=== PATIENT | male | born 1950 | race Caucasian/White ===

== ENCOUNTER 2024-06-04 23:27 | Observation (INO) | payer MEDICARE ==
[~2024-06-04] VITALS: Ht 180.3 cm; Wt 84.3 kg
[2024-06-05 00:21] LABS: ALBUMIN 4.2 g/dL (3.4-5.0); ALBUMIN/GLOBULIN RATIO 1.17 (1.1-2.4); ANION GAP 10.3 (7-21); BILIRUBIN, TOTAL 1.7 ng/dL (0.2-1.0); BUN/CREATININE RATIO 12.73 (6.0-28.6); CALCIUM 9.6 mg/dL (8.5-10.1); CREATININE, SERUM 1.57 mg/dL (0.70-1.30); MAGNESIUM 2.1 mg/dL (1.8-2.4); POTASSIUM 4.3 mmol/L (3.5-5.1); PROTEIN, TOTAL 7.8 g/dL (6.4-8.2)
[2024-06-05 00:25] LABS: BASOPHILS 0.7 % (0-2); EOSINOPHILS 1.4 % (0-6); HEMATOCRIT 47.8 % (35.0-50.0); HEMOGLOBIN 16.4 g/dL (12.0-18.0); LYMPHOCYTES 18.8 % (24-44); MCHC 34.4 g/dl (30-36); MCV 84.1 fl (81-99); MONOCYTES 11.4 % (0-12); NEUTROPHILS 67.7 % (39-80); PLATELET COUNT 237 K/uL (140-440); RBC 5.68 M/ul (4.3-5.7); RDW 13.7 (10.5-15.0)
[2024-06-05] MEDS ORDERED: MORPHINE SULFATE 4 MG/ML VIAL IV PRN (01:45)
[2024-06-05] MEDS ORDERED: ondansetron HCL 4 MG/2 ML VIAL IV PRN ×2 (01:45→11:15)
[2024-06-05] MEDS ORDERED: LACTATED RINGER'S 1,000 ML IV SCH (01:45)
[2024-06-05] MEDS ORDERED: GLUCAGON,HUMAN RECOMBINANT 1 MG/ML VIAL IV ONE (01:45)
--- NOTE | 2024-06-05 02:09 | NUR ---
RECEIVED VERBAL REPROT FROM ED RN TALIA IN THE ED. pt A/OX4, TAKEN VIA WC FROM ED ROOM TO MS ROOM #113, AMBULATED INDEPENDENTLY TO MS BED, STANDING WEIGHT OBTAINED. POC DISCUSSED, pt NPO. IV SITE WNL, FLUIDS INFUSING WNL. CALL LIGHT IN REACH. BEDSIDE REPORT GIVEN TO PRIMARY RN PEDRITO MAJOR TO TAKE OVER pt CARE AT THIS TIME.
[2024-06-05 02:10] VITALS: BP 133/84
--- NOTE | 2024-06-05 02:15 | NUR ---
ASSESSMENT COMPLETE. pt DENIES PAIN. HOB ELEVATED. pt EDUCATED ON NPO STATUS, ORIENTATION TO ROOM AND CALL LIGHT PROVIDED. IV SITE FLUSHED WNL, IVF INFUSING ORDERED. TENZIN BETTS IN ROOM FOR ADMISSION HISTORY.
--- NOTE | 2024-06-05 04:15 | NUR ---
PT RESTING IN BED, EYES CLOSED. NO DISTRESS NOTED.
--- NOTE | 2024-06-05 06:08 | NUR ---
VSS, IV PUMP CLEARED. DR STACK NOW IN ROOM AND DISCUSSING POC WITH pt. CALL LIGHT IN REACH.
[2024-06-05 06:09] VITALS: BP 125/81
--- NOTE | 2024-06-05 06:47 | NUR ---
pt adamant on trying a sip of water to "see if it'll go down". dr kiran at rn station and made aware, okay'd pt request. pt took a couple small sips of water, stayed down for approx 1 minute then pt spit it back up into emesis bag, dr kiran made aware. no new orders received. rt too completed ekg, result handed to and reviewed by dr kiran, no new orders received. beau acevedo aware.
--- NOTE | 2024-06-05 07:15 | NUR ---
REPORT RECIEVED FROM TENZIN MAJOR. PT SITTING UP IN BED AND RESPONDS WHEN ADDRESSED. PT DENIES ANY OTHER NEEDS AT THIS TIME. CALL LIGHT IN REACH.
--- NOTE | 2024-06-05 07:27 | CONS ---
[facility] [address], [place] [address] Signed DATE OF CONSULTATION: 06/05/2024 CHIEF COMPLAINT: Esophageal foreign body. 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 He is over here in [facility], hunting [place] with his bow and arrow. He was in camp, eating some jerky and some pork and he thinks it stuck in his esophagus. He came to our local emergency room for evaluation. He apparently could not tolerate drinking any water. He slept all night long, has not spit up once. I woke him up this morning in the room with our nurse present and he was a little groggy, but he is not 100% sure if it is still stuck or not. He was able to talk to me and swallow his saliva throughout the conversation. I have been asked to admit him as a general surgeon on-call. PAST MEDICAL HISTORY: Esophageal foreign body 10-15 years ago. PAST SURGICAL HISTORY: A disk removed from the lower portion of his neck without metal and upper endoscopy 10-15 years ago for foreign body removal. 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 He does not smoke or drink, but he likes to chew snuff. He has no primary care provider as many of him have retired. He lives in [facility]. His is Carlos at ([phone]. FAMILY HISTORY: None. REVIEW OF SYSTEMS: He had 10 systems reviewed. He told me about his neck. ALLERGIES: None. MEDICATIONS: None. PHYSICAL EXAMINATION: VITAL SIGNS: Blood pressure is 133/84, heart rate 71, respiratory rate 18, temperature Electronically Signed By: MATTHIAS AMOS MD 06/05/24 0727 PATIENT NAME: MIGUEL ANGEL TIPTON CONSULTATION DATE OF : 54 REPORT #: [id number] PHYSICIAN: MATTHIAS AMOS MD PCP: NO PRIMARY CARE PHYSICIAN REPORT IS CONFIDENTIAL AND NOT TO BE RELEASED WITHOUT AUTHORIZATION [facility] [address], [place] [address] Signed is 97.4, and he is 100% on room air. He is 5 feet 11 inches tall, at 82 kg with a body mass index of 25. GENERAL: Miguel Angel is a 73-year-old gentleman, who is lying supine semi-recumbent in his hospital bed. He was found asleep this morning with no increased work of breathing or shortness of breath. He talks fine and control his saliva fine. LUNGS: Clear to auscultation bilaterally. HEART: Regular rate and rhythm without murmurs. ABDOMEN: Soft, nontender. LABORATORY DATA: His white count is 9, hemoglobin 16, and neutrophils 67. His creatinine is 1.57, albumin is 4.2. EKG is pending. IMAGING DATA: CT scan of his chest shows an air-fluid level in his proximal esophagus. No obvious foreign body visualized. ASSESSMENT AND PLAN: Miguel Angel is a 73-year-old gentleman, who apparently has an esophageal foreign body in the form of either jerky or pork. If it is jerky, he may be getting his saliva passed it, and therefore it is only partially obstructed. He has been admitted overnight and has done well. We are going to plan to take him to the endoscopy suite later today with the help of our anesthesia provider. We will look to make sure his esophagus is completely clear. He understands that jerky can be difficult to remove from the esophagus with flexible endoscopy. If that is true, he might need rigid esophagoscopy, which we do not have available at our hospital, that would be over an hour away. He understands risks including, but not limited to gas bloating, crampy abdominal pain, bleeding, perforation requiring surgery, and missed diagnosis. He has expressed understanding and would like to proceed. MD ELIZABETH Gallego/HIGINIOL /[id number] cc: Matthias Amos MD Electronically Signed By: MATTHIAS AMOS MD 06/05/24 0727 PATIENT NAME: MIGUEL ANGEL TIPTON CONSULTATION DATE OF : 54 REPORT #: [id number] PHYSICIAN: MATTHIAS AMOS MD PCP: NO PRIMARY CARE PHYSICIAN REPORT IS CONFIDENTIAL AND NOT TO BE RELEASED WITHOUT AUTHORIZATION [facility] [address] [facility] [place], [place] [address] Signed Copies: MATTHIAS AMOS MD ~ Electronically Signed By: MATTHIAS AMOS MD 06/05/24 0727 PATIENT NAME: MIGUEL ANGEL TIPTON CONSULTATION DATE OF : 54 REPORT #: [id number] PHYSICIAN: MATTHIAS AMOS MD PCP: NO PRIMARY CARE PHYSICIAN REPORT IS CONFIDENTIAL AND NOT TO BE RELEASED WITHOUT AUTHORIZATION
--- NOTE | 2024-06-05 08:00 | NUR ---
IN TO HANG LR WITH STRAIGHT TUBING. PT SITTING UP IN BED AND RESPONDS WHEN ADDRESSED. PT DENIES ANY NAUSEA OR PAIN AT THIS TIME. IV FLUSHES WNL WITH BRISK BLOOD RETURN NOTED. PTs JEANS AND SOCKS REMOVED. HOSPITAL SOCKS PROVIDED. ASSESSMENT COMPLETE. LUNG SOUNDS CLEAR. BOWEL TONES ACTIVE. ABD NON-TENDER WITH PALPATION. RADIAL PULSES PALPABLE, STRONG AND EQUAL. PEDAL PULSES PALPABLE, STRONG AND EQUAL. PT DENIES ANY OTHER NEEDS AT THIS TIME. CALL LIGHT IN REACH.
--- NOTE | 2024-06-05 08:05 | NUR ---
UR CLINICAL REVIEW: CRAIG, MEETS OBS CRITERIA FOR GENERAL OBSERVATION CARE [facility] SUPPLE[facility]BS 06/05/24 @ 0140 ORDER MATCHES STATUS AUTH PENDING. WILL SEND CLINICALS IF REQUESTED PLAN TO DC TO HOME WHEN STABLE. 06/06/24
--- NOTE | 2024-06-05 08:20 | NUR ---
PATIENT SITTING AT SIDE OF BED, RNS AT BEDSIDE. BOARD UPDATED.
--- NOTE | 2024-06-05 09:10 | NUR ---
medications reconciled- patient takes no chronic medications
--- NOTE | 2024-06-05 09:53 | NUR ---
TENZIN GARCIA HERE TO TAKE PT DOWN FOR PROCEDURE.
[2024-06-05] MEDS ORDERED: LIDOCAINE HCL 2% 5 ML SDV ONE (10:15)
[2024-06-05] MEDS ORDERED: GLYCOPYRROLATE 1 MG/5 ML MDV ONE (10:15)
[2024-06-05] MEDS ORDERED: propofoL 200 MG/20 ML VIAL ONE (10:15)
[2024-06-05] MEDS ORDERED: SUCCINYLCHOLINE IN 0.9% NACL 200 MG/10 ML SYRINGE ONE (10:15)
--- NOTE | 2024-06-05 10:31 | NUR ---
Attempted to see pt, he is in surgery.
[2024-06-05] MEDS ORDERED: ePHEDrine sulfate 50 MG/ML AMP ONE (10:38)
--- NOTE | 2024-06-05 11:00 | NUR ---
06/05/24 1100 Ling Eddy 1056-PATIENT ARRIVED TO PACU ON 6L MASK NONAROUSABLE ORAL AIRWAY IN PLACE. RR EVEN. SINUS TACHYCARDIA HR 115. IVF INFUSING. ABDOMEN SOFT. PATIENT LAYING SEMI FOWLERS.
[2024-06-05] MEDS ORDERED: PROCHLORPERAZINE EDISYLATE 10 MG/2 ML VIAL IV PRN (11:15)
[2024-06-05] MEDS ORDERED: DEXTROSE 5% - LACTATED RINGERS 1,000 ML IV SCH (11:15)
[2024-06-05] MEDS ORDERED: ACETAMINOPHEN 500 MG TAB PO PRN (11:15)
[2024-06-05 11:30] VITALS: BP 123/94
--- NOTE | 2024-06-05 11:30 | NUR ---
IN ROOM WITH TENZIN SIMMONS RECIEVEING REOPRT FROM SURGERY NURSE. THIS RN RECIEVES REPORT. CPOX IN PLACE. PT NOTED TO BE DRINKING WATER WITH NO ISSUES. IV FLUIDS STARTED WNL, SEE MAR. PT DENIES ANY OTHER NEEDS AT THIS TIME. CALL LIGHT IN REACH.
--- NOTE | 2024-06-05 11:50 | NUR ---
CALL TO AIDA MOBLEY, TO LET HIM KNOW THAT PATIENT WOULD LIKELY BE READY TO DISCHARGE BY 1400. THEY ARE AWARE THAT PATIENT IS NOT TO [place] FOR 24 HOURS AND TO EAT SOFT FOODS FOR 48HOURS.
[2024-06-05 12:33] VITALS: BP 143/83
--- NOTE | 2024-06-05 12:38 | NUR ---
IN WITH TENZIN TORRES TO OBTAIN VITALS. VITALS COMPLETE. PT SITTING UP IN BED EATING LUNCH. PT PROVIDED FRESH WATER. PT DENIES ANY OTHER NEEDS AT THIS TIME. CALL LIGHT IN REACH.
--- NOTE | 2024-06-05 12:43 | OR ---
[facility] [address] [place], [place] [address] Signed DATE OF OPERATION: 06/05/2024 SURGEON: Matthias Amos MD PREOPERATIVE DIAGNOSIS: Esophageal foreign body (pork versus jerky). POSTOPERATIVE DIAGNOSES: 1. Esophageal foreign body (pork). 2. Hairy tongue. 3. Gastroduodenitis. PROCEDURE: EGD with CLOtest, biopsy of the pyloric bulb, antrum and removal of esophageal foreign body. ESTIMATED BLOOD LOSS: None. INDICATIONS: Miguel Angel is a 73-year-old gentleman, who lives over in [facility] about 6 hours away. He is here with his friends . He was eating some jerky followed by some pork and he felt like it was stuck in his esophagus. He has been able to control his saliva fairly well but is not able to drink anything of any significance. He had come into the emergency room for evaluation. He was admitted last night and did well overnight. I had met Miguel Angel this morning and reviewed with him the above findings. We again allowed him to try to drink a little and it did not work out well at all. He went through this once around 10 to 15 years ago. He currently has no primary care provider for over 10 years. Apparently, his has a primary care provider. I explained him the upper endoscopy. There is risk including, but not limited to gas bloating, crampy abdominal pain, bleeding, perforation requiring surgery, and missed diagnosis. We also reviewed the need for general endotracheal tube anesthesia to protect his airway during removal of the foreign body. He had expressed understanding and wished to proceed. PROCEDURE IN DETAIL: Miguel Angel was taken into the endoscopy suite and placed in the supine position. He was placed under general endotracheal tube anesthesia per our nurse qa test lead. A bite block was utilized. After this, the adult gastroscope was introduced all the way out into the 3rd portion of the duodenum. The duodenum proper was unremarkable. He had moderate inflammatory changes in the pyloric bulb without an ulcer. He also had some Electronically Signed By: MATTHIAS AMOS MD 06/05/24 1243 PATIENT NAME: MIGUEL ANGEL TIPTON OPERATIVE REPORT DATE OF : 54 REPORT #: [id number] PHYSICIAN: MATTHIAS AMOS MD PCP: NO PRIMARY CARE PHYSICIAN REPORT IS CONFIDENTIAL AND NOT TO BE RELEASED WITHOUT AUTHORIZATION [facility] [address] [place], [place] [address] Signed mild to moderate inflammation in the distal half of the stomach. We went ahead and took a biopsy of the pyloric bulb and antrum for pathologic review. An additional biopsy came out of the antrum for CLOtest. The incisura body and fundus of the stomach were unremarkable. We could not appreciate a hiatal hernia. His GE junction is right at about 34 cm. Minimal disruption to the Z-line. There is no Boo's mucosa. No obvious stricture. No gastric or esophageal varices. On our way in, we did see his pork that was moving around in his mid to distal esophagus. We had removed it in two pieces with our basket. After this, the entire esophagus was clear. Upon passing the scope into his mouth and out of his mouth, we can see that he has a hairy tongue. This is as usual a benign condition, but he should follow this up when he gets back home to [facility]. RECOMMENDATIONS: Steven is going to finish out the with his friends and head back to [facility]. He is welcome to call our office for any followup, but he can establish with a primary care provider over in [facility] as well. Matthias Amos MD ALB/MODL /[id number] cc: Matthias Amos MD Copies: MATTHIAS AMOS MD ~ Electronically Signed By: MATTHIAS AMOS MD 06/05/24 1243 PATIENT NAME: MIGUEL ANGEL TIPTON OPERATIVE REPORT DATE OF : 54 REPORT #: [id number] PHYSICIAN: MATTHIAS AMOS MD PCP: NO PRIMARY CARE PHYSICIAN REPORT IS CONFIDENTIAL AND NOT TO BE RELEASED WITHOUT AUTHORIZATION
--- NOTE | 2024-06-05 13:03 | NUR ---
PATIENT UP TO VOID, ATE 80% OF DINNER. PATIENT FRIENDS IN ROOM. PATIENT IS AWAITING DISCHARGE, AMBULATED INDEPENDANTLY TO BATHROOM. PATIENT DENIES PAIN, IS SALINE LOCKED.
[2024-06-05 13:13] VITALS: BP 134/87
--- NOTE | 2024-06-05 13:14 | NUR ---
PATIENT SITTING IN BED, VITALS AND I&OS CHARTED. VISITORS IN ROOM. IV REMOVED. IV IRIS IN WITH D/C PAPERS
--- NOTE | 2024-06-05 13:53 | EKG ---
[facility] [address] [facility] [place], [place] [address] Signed Sinus rhythm with premature atrial complexes Septal infarct , age undetermined Abnormal ECG No previous ECGs available Confirmed by Kenton Betancourt MD ([id number]) on 06/05/2024 1:53:26 PM Electronically Signed By: KENTON BETANCOURT 06/05/24 1353 PATIENT NAME: LAURIE TIPTON BOOKER Electrocardiogram DATE OF : 54 PHYSICIAN: KENTON BETANCOURT REPORT #: [id number] REPORT IS CONFIDENTIAL AND NOT TO BE RELEASED WITHOUT AUTHORIZATION
--- NOTE | 2024-06-18 13:16 | PATH ---
[facility] [address] [place], [place] [address] Signed SPECIMEN(S): A DUODENAL BIOPSY SPECIMEN(S): B ANTRUM BIOPSY SPECIMEN SOURCE: A. DUODENAL BIOPSY B. ANTRUM BIOPSY CLINICAL HISTORY: Esophageal foreign body, gastroduodenitis, esophageal foreign body FINAL PATHOLOGIC DIAGNOSIS: A. Duodenal biopsy: - Benign duodenal mucosa with increased stromal acute and chronic inflammation. - Negative for increased epithelial lymphocytes. B. Antrum, biopsy: - Benign gastric mucosa with slight mucosal chronic inflammation. - Negative for evidence of Helicobacter organisms on routine HE stained sections. JVR:cml MICROSCOPIC EXAMINATION: Histologic sections of all submitted blocks are examined by light microscopy. These findings, together with the gross examination, support the pathologic diagnosis. GROSS DESCRIPTION: A. The specimen, labeled and designated "Carleen, duodenal biopsy," is received in formalin and consists of one grove soft tissue fragment, 0.3 cm. Entirely submitted in (A1). B. The specimen, labeled and designated "Carleen, antrum biopsy," is received in formalin and consists of one grove soft tissue fragment, 0.3 cm. Entirely submitted in (B1). VB (under the direct supervision of a pathologist) The Gross Description was prepared using a voice recognition system. The report was reviewed for accuracy; however, sound-alike word errors, addition and/or deletions may occur. If there is any question about this report, please contact Client Services. PERFORMING LABORATORY: Technical component was performed by [employer], Sara Denton, PATIENT NAME: LAURIE TIPTON PATHOLOGY DATE OF : 54 REPORT #: [id number] PHYSICIAN: ROBBY PATHOLOGY PCP: NO PRIMARY CARE PHYSICIAN REPORT IS CONFIDENTIAL AND NOT TO BE RELEASED WITHOUT AUTHORIZATION [facility] [address] [facility] [facility] [place], [place] [address] [place] [address] (CLIA# [id number]). Professional interpretation [facility], [address] [place] [address] [place] [address] (CLIA#: [id number]). Diagnostician: Robert Wilkes MD Pathologist Electronically Signed 06/18/2024 Copies: ~ PATIENT NAME: LAURIE TIPTON PATHOLOGY DATE OF : 54 REPORT #: [id number] PHYSICIAN: ROBBY SILVA PCP: NO PRIMARY CARE PHYSICIAN REPORT IS CONFIDENTIAL AND NOT TO BE RELEASED WITHOUT AUTHORIZATION
== END 2024-06-05 13:20 | disposition home or self-care (01) ==
LOC: ED 23:27 → MS 23:30
PROVIDERS: Family Medicine; ADMIT Colon & Rectal Surgery; ATTEND Colon & Rectal Surgery
PROC: 0DB58ZX Excision of Esophagus, Via Natural or Artificial Opening Endoscopic, Diagnostic (ICD-10-PCS; principal; 2024-06-04)
PROC: 0DB68ZX Excision of Stomach, Via Natural or Artificial Opening Endoscopic, Diagnostic (ICD-10-PCS; 2024-06-04)
PROC: 0DC58ZZ Extirpation of Matter from Esophagus, Via Natural or Artificial Opening Endoscopic (ICD-10-PCS; 2024-06-04)
DX: T18.128A Food in esophagus causing other injury, initial encounter (principal); K29.50 Unspecified chronic gastritis without bleeding; K29.90 Gastroduodenitis, unspecified, without bleeding
CPT/HCPCS: 00731; 36415; 70491; 80053; 83735; 85025; 87077; 88305; 93005; 93010; 99284-25; G0378; J0330; J1610; J2001; J2704; J7121; Q9967